=== PATIENT | female | born 1970 | race American Indian/Alaskan Native ===

== ENCOUNTER 2018-11-13 16:10 | Emergency (ER) | payer SELFPAY ==
[2018-11-13 16:46] VITALS: BP 108/65; PULSE 93; RESP 19; TEMP 97.9; O2SAT 97
--- NOTE | 2018-11-13 16:55 | C.PDOC ---
History Of Present Illness Patient brought by [facility] for medical clearance for incarceration. Patient has a history of HIV and Bipolar disorder with depression. She is on several medications which she states she last took yesterday. She is anxious and restless now but denies any medical symptoms. Time Seen by Provider: 11/13/18 16:40 Chief Complaint (Nursing): Psychiatric Evaluation History Per: Patient History/Exam Limitations: no limitations Suicide/Self Injury Attempted (Context): None Involuntary Hold By: Local Law Enforcement Past Medical History Vital Signs: Last Vital Signs Temp 97.9 F 11/13/18 16:45 Pulse 93 H 11/13/18 16:45 Resp 19 11/13/18 16:45 BP 108/65 11/13/18 16:45 Pulse Ox 97 11/13/18 16:45 - Medical History PMH: Anxiety, Bipolar Disorder, Depression, HIV, Schizophrenia Surgical History: No Surg Hx Family History: States: Unknown Family Hx - Social History Hx Alcohol Use: No Hx Substance Use: No - Immunization History Hx Tetanus Toxoid Vaccination: No Hx Influenza Vaccination: No Hx Pneumococcal Vaccination: No Review Of Systems Constitutional: Negative for: Fever, Chills, Sweats, Weakness, Malaise Cardiovascular: Negative for: Chest Pain, Palpitations Respiratory: Negative for: Shortness of Breath Gastrointestinal: Negative for: Nausea, Vomiting, Abdominal Pain Neurological: Negative for: Weakness, Incoordination, Change in Speech, Confusion, Altered Mental Status, Headache Psych: Positive for: Anxiety, Depression. Negative for: Suicidal ideation Physical Exam - Physical Exam Appears: Well, No Acute Distress Skin: Normal Color, Warm Head: Atraumatic Eye(s): bilateral: Normal Inspection Oral Mucosa: Moist Lips: Normal Appearing Neck: Normal ROM Chest: Symmetrical Cardiovascular: Rhythm Regular Respiratory: Normal Breath Sounds Gastrointestinal/Abdominal: Normal Exam, Bowel Sounds, Soft, No Tenderness Extremity: Normal ROM Extremity: Bilateral: Atraumatic Neurological/Psych: Oriented x3, Normal Speech, Normal Cognition, Normal Motor, Normal Sensation ED Course And Treatment O2 Sat by Pulse Oximetry: 97 Disposition - Disposition Disposition: RELEASED IN POLICE CUSTODY Disposition Time: 16:53 Condition: STABLE Additional Instructions: Patient is medically and psychiatrically cleared to discharge in police custody. Instructions: Bipolar Disorder - Clinical Impression Clinical Impression: Bipolar 1 disorder
== END 2018-11-13 17:32 ==
LOC: C.ER 16:10
DX: F31.9 Bipolar disorder, unspecified (principal)